=== PATIENT | male | born 1980 | race African-American/Black ===

== ENCOUNTER 2021-02-20 18:32 | Inpatient (IN) | payer OTHER ==
[2021-02-20 13:56] VITALS: BMI 22.1
[2021-02-20] MEDS ORDERED: MAGNESIUM CITRATE 300 ML BOTTLE PO PRN (19:43)
[2021-02-20] MEDS ORDERED: MAGNESIUM HYDROX 2400MG/30ML ORAL SUSPENSION 30 ML CUP PO PRN (19:43)
[2021-02-20] MEDS ORDERED: METHOCARBAMOL 500 MG TABLET PO PRN (19:43)
[2021-02-20] MEDS ORDERED: ONDANSETRON *ODT* 4 MG TABLET SL PRN (19:43)
[2021-02-20] MEDS ORDERED: ACETAMINOPHEN 325 MG TABLET (FP) PO PRN ×2 (19:43)
[2021-02-20] MEDS ORDERED: IBUPROFEN 400 MG TABLET (FP) PO PRN (19:43)
[2021-02-20] MEDS ORDERED: MAG HYDROX/AL HYDROX/SIMETH 30 ML UNIT-DOSE CUP PO PRN (19:43)
[2021-02-20] MEDS ORDERED: BISMUTH SUBSALICYLATE 524 MG/30 ML PO PRN (19:43)
[2021-02-20] MEDS ORDERED: MENTHOL/PHENOL 1 EACH UD MM PRN (19:43)
[2021-02-20] MEDS ORDERED: LORazepam 1 MG TABLET PO PRN (19:43)
[2021-02-20] MEDS ORDERED: NICOTINE POLACRILEX 2 MG GUM BUC PRN (19:43)
[2021-02-20] MEDS: MELATONIN 5 MG TABLETS PO SCH (21:29)
[2021-02-20] MEDS: THIAMINE HCL 100 MG TABLET (FP) PO SCH (21:29)
[2021-02-20] MEDS: NICOTINE 7 MG/24 HOURS TOPICAL PATCH TD SCH (21:38)
[2021-02-20] MEDS: LORazepam 2 MG TABLET PO SCH (22:05)
[2021-02-20] MEDS: hydrOXYzine PAMOATE 25 MG CAPSULE (FP) PO SCH (22:05)
[2021-02-21] MEDS: hydrOXYzine PAMOATE 25 MG CAPSULE (FP) PO SCH ×5 (06:33→22:21)
[2021-02-21] MEDS: LORazepam 2 MG TABLET PO SCH ×4 (06:34→22:21)
[2021-02-21 10:21] LABS: HEMATOCRIT 41.2 % (35.4-49); HEMOGLOBIN 13.6 GM/dL (11.7-16.9); MCH 29.9 pg (25.7-33.7); MCHC 33.2 g/dl (32.0-35.9); MEAN PLT VOLUME 8.6 fl (7.5-11.1); PLATELET COUNT 339 10^3/uL (134-434); RBC 4.57 M/mm3 (4.00-5.60); RDW 14.1 % (11.9-15.9); WHITE BLOOD COUNT 6.2 K/mm3 (4.0-10.0)
[2021-02-21 10:25] LABS: ALBUMIN 3.8 g/dl (3.4-5.0); BLOOD UREA NITROGEN 18.2 mg/dL (7-18); CALCIUM 8.9 mg/dL (8.5-10.1)
[2021-02-21 10:28] LABS: BILIRUBIN,TOTAL 1.2 mg/dL (0.2-1); TOT PROT 7.5 g/dl (6.4-8.2)
[2021-02-21 10:29] LABS: CREATININE 1.2 mg/dL (0.55-1.3)
[2021-02-21] MEDS: PRENATAL VITAMINS W/ FOLIC ACID TABLET (FP) PO SCH (10:31)
[2021-02-21] MEDS: NICOTINE 7 MG/24 HOURS TOPICAL PATCH TD SCH (10:33)
[2021-02-21] MEDS: THIAMINE HCL 100 MG TABLET (FP) PO SCH (22:21)
[2021-02-21] MEDS: MELATONIN 5 MG TABLETS PO SCH (22:21)
[2021-02-22] MEDS: hydrOXYzine PAMOATE 25 MG CAPSULE (FP) PO SCH ×3 (05:13→14:48)
[2021-02-22] MEDS: LORazepam 1 MG TABLET PO SCH ×4 (05:13→22:32)
[2021-02-22] MEDS: NICOTINE 7 MG/24 HOURS TOPICAL PATCH TD SCH (10:26)
[2021-02-22] MEDS: PRENATAL VITAMINS W/ FOLIC ACID TABLET (FP) PO SCH (10:26)
[2021-02-22] MEDS: hydrOXYzine PAMOATE 25 MG CAPSULE (FP) PO PRN (22:32)
[2021-02-22] MEDS: THIAMINE HCL 100 MG TABLET (FP) PO SCH (22:33)
[2021-02-22] MEDS: MELATONIN 5 MG TABLETS PO SCH (22:33)
[2021-02-23] MEDS ORDERED: LORazepam 0.5 MG TABLET PO PRN
[2021-02-23] MEDS: LORazepam 0.5 MG TABLET PO SCH ×4 (05:21→22:42)
[2021-02-23] MEDS: PRENATAL VITAMINS W/ FOLIC ACID TABLET (FP) PO SCH (10:17)
[2021-02-23] MEDS: hydrOXYzine PAMOATE 25 MG CAPSULE (FP) PO PRN (10:17)
[2021-02-23] MEDS: NICOTINE 7 MG/24 HOURS TOPICAL PATCH TD SCH (10:20)
[2021-02-23] MEDS ORDERED: BACITRACIN 0.9 GM PACKET TP SCH (11:15)
[2021-02-23] MEDS: THIAMINE HCL 100 MG TABLET (FP) PO SCH (22:43)
[2021-02-23] MEDS: MELATONIN 5 MG TABLETS PO SCH (23:06)
[2021-02-24] MEDS: hydrOXYzine PAMOATE 25 MG CAPSULE (FP) PO PRN (03:06)
[2021-02-24] MEDS ORDERED: LORazepam 0.5 MG TABLET PO ONE (05:00)
[2021-02-24 06:30] VITALS: BP 152/73; PULSE 76; TEMP 96.7
== END 2021-02-24 09:28 | disposition home or self-care (01) | DRG 775 ==
LOC: YASAS 18:32 → Y3N 20:26
PROVIDERS: ADMIT Allergy & Immunology; ATTEND Allergy & Immunology
PROC: HZ2ZZZZ Detoxification Services for Substance Abuse Treatment (ICD-10-PCS; principal; 2021-02-20)
DX: F10.230 Alcohol dependence with withdrawal, uncomplicated (principal); F12.20 Cannabis dependence, uncomplicated; F17.210 Nicotine dependence, cigarettes, uncomplicated; F19.282 Other psychoactive substance dependence with psychoactive substance-induced sleep disorder; F19.24 Other psychoactive substance dependence with psychoactive substance-induced mood disorder; Z21 Asymptomatic human immunodeficiency virus [HIV] infection status; G62.9 Polyneuropathy, unspecified; J44.9 Chronic obstructive pulmonary disease, unspecified; I10 Essential (primary) hypertension; I25.2 Old myocardial infarction; Z86.59 Personal history of other mental and behavioral disorders; Z86.73 Personal history of transient ischemic attack (TIA), and cerebral infarction without residual deficits
CPT/HCPCS: 36415; 80053; 85027; 86780; C9803; U0003; U0005